=== PATIENT | male | born 1955 | race Caucasian/White ===

== ENCOUNTER 2025-03-09 08:10 | Day surgery (SDC) | payer MEDICARE ==
[~2025-03-09] VITALS: Ht 177.8 cm; Wt 105.1 kg
[~2025-03-09 08:10] MED LIST: ASPI81CH33 PO; B-12100010 PO; LOSA100T46 PO; METF500T13 PO; ROSU5TAB49 PO
[2025-03-09 09:55] VITALS: TEMP 97.8
[2025-03-09 10:13] VITALS: BP 136/72; O2SAT 96
== END 2025-03-09 10:16 | disposition home or self-care (01) ==
LOC: M OPP 08:10
PROVIDERS: ATTEND Surgery
DX: Z12.11 Encounter for screening for malignant neoplasm of colon (principal); Z79.82 Long term (current) use of aspirin; Z79.84 Long term (current) use of oral hypoglycemic drugs; Z79.899 Other long term (current) drug therapy